=== PATIENT | male | born 1965 | race Caucasian/White ===

== ENCOUNTER → 2016-10-27 | Outpatient (CLI) | payer BC ==
--- NOTE | ~2016-10-27 | MR15 ---
[facility] A Service of [facility] RADIOLOGY TEXT RESULTS PATIENT: LOUIE KITCHEN LOCATION: [facility] : 63 UNIT #: [id number] AGE: [address]: Jordan Larsen MD SEX: M ORDER DR: [id number] [address] [address] [id number] O MR#: [id number] Acc #: [id number] NAME: LOUIE KITCHEN : 1965 SEX: M STUDY DATE/TIME: 10/27/2016 8:50 UNIT: [facility] ROOM: STUDY DESCRIPTION: MR Brain W IACS WWo Contrast Attending Physician: Jordan Larsen M.D. Referring Physician: Jordan Larsen M.D. Ordering Physician: Jrodan Larsen M.D. Primary Care Physician: Jordan Larsen M.D. MRI CENTER REPORT This report is preliminary unless electronic signature is present. EXAM MRI brain and IACs with and without contrast HISTORY Dizzy spells and vertigo over the past year. Left-sided hearing loss over the past year. Hearing loss is sensorineural. TECHNIQUE Multiplanar imaging of the brain was performed with and without contrast with thin, detailed sections through the IACs. 18 mL of MultiHance was used. FINDINGS The routine brain images show no evidence of recent infarct. Ventricular size is normal. No white matter signal abnormalities are seen. Thin, detailed sections through the IACs show no evidence of acoustic neuroma or other cerebellopontine angle mass. No abnormal enhancement is seen on the postcontrast images. No skull base abnormalities are noted. IMPRESSION Negative MRI of the brain and IACs. Dictated by... Usman Howard M.D. THIS IS AN ELECTRONICALLY VERIFIED REPORT Usman Howard M.D. at 10/31/2016 3:10 PM IVETTE/steffi TD: 10/29/2016 22:53 JOB #: [id number] [facility] A Service of [facility] RADIOLOGY TEXT RESULTS PATIENT: LOUIE KITCHEN LOCATION: [facility] : 63 UNIT #: [id number] AGE: [address]: Jordan Larsen MD SEX: M ORDER DR: MRI CENTER REPORT Page 1 of 1
== END | disposition home or self-care (01) ==
LOC: SMRI 07:57
DX: H91.92 Unspecified hearing loss, left ear (principal); R42 Dizziness and giddiness
CPT/HCPCS: 70553; A9581